=== PATIENT | female | born 1980 | race Caucasian/White ===

== ENCOUNTER 2018-12-17 07:11 | Emergency (ER) | payer MEDICAID ==
[~2018-12-17] VITALS: Ht 162.6 cm; Wt 67.9 kg
[2018-12-17 07:14] VITALS: RESP 17; Ht 162.6 cm; Wt 67.9 kg
[2018-12-17] MEDS ORDERED: NORE1TAB12 PO (09:37)
[2018-12-17] MEDS ORDERED: FER325 PO (09:37)
[2018-12-17] MEDS ORDERED: DOCU-144 PO (09:37)
[2018-12-17 10:01] VITALS: BP 118/56; PULSE 71
--- NOTE | 2018-12-17 10:05 | ERD ---
ER Documentation Chief Complaint Chief Complaint IRREGULAR PERIODIC HEAVY/LIGHT VB X 2 MONTHS HPI 38-year-old female presenting with vaginal bleeding for the last 2 months. Patient received a Depo-Provera shot 2 months ago and has had continued bleeding ever since. Patient denies any pelvic pain. She denies any dizziness or chest pain. Denies other medical problems. NKDA. Surgical history denies. Social history denies ROS All systems reviewed and are negative except as per history of present illness. Medications Home Meds Active Scripts Docusate Sodium* (Colace*) 100 Mg Capsule, 100 MG PO TID, #30 CAP Prov:LUCHO JOHNSON PA-C 12/17/18 Ferrous Sulfate* (Ferrous Sulfate*) 325 Mg Tabec, 325 MG PO BID, #30 TAB Prov:LUCHO JOHNSON PA-C 12/17/18 Noreth A-Et Estra/Fe Fumarate (LO LOESTRIN FE 1-10 TABLET) 1 Each Tablet, 1 EACH PO DAILY, #28 TAB Prov:LUCHO JOHNSON PA-C 12/17/18 Allergies Allergies: Coded Allergies: No Known Allergy (Unverified , 08/02/13) PMhx/Soc Medical and Surgical Hx: pt denies Medical Hx, pt denies Surgical Hx Hx Alcohol Use: No Hx Substance Use: No Hx Tobacco Use: No Smoking Status: Never smoker FmHx Family History: No diabetes, No coronary disease, No other Physical Exam Vitals Vital Signs Date Temp Pulse Resp B/P (MAP) Pulse Ox O2 O2 Flow FiO2 Time Delivery Rate 12/17/18 98.8 71 118/56 10:01 (76) 12/17/18 97.6 90 17 146/70 97 07:14 (95) Physical Exam GENERAL: The patient is well-appearing, well-nourished, in no acute distress CHEST: Clear to auscultation bilaterally. There are no rales, wheezes or rhonchi. HEART: Regular rate and rhythm. No murmurs, clicks, rubs or gallops. ABDOMEN:Soft, nontender and nondistended. Good bowel sounds. No rebound or guarding. No gross peritonitis. No gross organomegaly or masses. BACK: No midline or flank tenderness. Result Diagram: 12/17/18 0753 12/17/18 0753 Results 24 hrs Laboratory Tests Test 12/17/18 07:53 White Blood Count 3.6 10^3/ul Red Blood Count 4.19 10^6/ul Hemoglobin 11.1 g/dl Hematocrit 34.9 % Mean Corpuscular Volume 83.3 fl Mean Corpuscular Hemoglobin 26.5 pg Mean Corpuscular Hemoglobin Concent 31.8 g/dl Red Cell Distribution Width 13.1 % Platelet Count 174 10^3/UL Mean Platelet Volume 11.1 fl Immature Granulocytes % 0.000 % Neutrophils % 59.5 % Lymphocytes % 27.2 % Monocytes % 9.4 % Eosinophils % 3.6 % Basophils % 0.3 % Nucleated Red Blood Cells % 0.0 /100WBC Immature Granulocytes # 0.000 10^3/ul Neutrophils # 2.1 10^3/ul Lymphocytes # 1.0 10^3/ul Monocytes # 0.3 10^3/ul Eosinophils # 0.1 10^3/ul Basophils # 0.0 10^3/ul Nucleated Red Blood Cells # 0.0 10^3/ul Urine Color YELLOW Urine Clarity CLOUDY Urine pH 6.0 Urine Specific [place] 1.015 Urine Ketones NEGATIVE mg/dL Urine Nitrite NEGATIVE mg/dL Urine Bilirubin NEGATIVE mg/dL Urine Urobilinogen NEGATIVE mg/dL Urine Leukocyte Esterase TRACE Mason/ul Urine Microscopic RBC > 182 /HPF Urine Microscopic WBC 41 /HPF Urine Squamous Epithelial Cells FEW /HPF Urine Bacteria FEW /HPF Urine Mucus FEW /HPF Urine Hemoglobin 3+ mg/dL Urine Glucose NEGATIVE mg/dL Urine Total Protein NEGATIVE mg/dl Urine Test NEGATIVE Sodium Level 143 mmol/L Potassium Level 3.8 mmol/L Chloride Level 109 mmol/L Carbon Dioxide Level 23 mmol/L Anion Gap 11 Blood Urea Nitrogen 13 mg/dl Creatinine 0.69 mg/dl Est Glomerular Filtrat Rate mL/min > 60 mL/min Glucose Level 96 mg/dl Calcium Level 9.4 mg/dl Total Bilirubin 0.6 mg/dl Direct Bilirubin 0.00 mg/dl Indirect Bilirubin 0.6 mg/dl Aspartate Amino Transf (AST/SGOT) 21 IU/L Alanine Aminotransferase (ALT/SGPT) 18 IU/L Alkaline Phosphatase 67 IU/L Total Protein 7.8 g/dl Albumin 4.4 g/dl Globulin 3.40 g/dl Albumin/Globulin Ratio 1.29 Lipase 60 U/L Procedures/MDM DIAGNOSTIC IMAGING REPORT Patient: TARA STERN : 1980 Age: 38 Sex: F MR #: [id number] DOS: 12/17/18 0739 Ordering MD: DANNY JOHNSON PA-C Location: [facility] Room/Bed: PROCEDURE: Pelvic ultrasound color-flow Doppler of the adnexa. CLINICAL INDICATION: Pain TECHNIQUE: Multiple sagittal, oblique and transverse real time images were obtained of the lower abdomen and pelvis using a transabdominal as well a transvaginal approach. Color-flow Doppler of the adnexa. COMPARISON: None. FINDINGS: The uterus is enlarged measuring 10.83 x 7.27 x 6.81 cm. Myometrial echoes are diffusely heterogeneous with multiple leiomyomas. The 2 largest leiomyomas are in the fundus measuring 5.2 and 4.2 cm respectively. The endometrium is homogeneous without focal lesion and is mildly thickened maximal AP diameter 1.29 cm. The ovaries are normal in size with the right measuring 2.83 x 1.87 x 2.78 cm and the left measuring 3.83 x 1.75 x 3.95 cm. There follicular cysts in both ovaries. In the left ovary is a 1.76 cm cyst. No other ovarian masses. Flow to both ovaries without ultrasonic evidence of ovarian torsion. Small free fluid in the right adnexa. No other free fluid. No evidence of adnexal masses. IMPRESSION: 1. Enlarged heterogeneous uterus with multiple leiomyomas as described above. 2. Homogeneous thickened endometrium without focal lesion. 3. Normal size ovaries with the left ovary containing a 1.76 cm cyst. Additional bilateral ovarian follicular cysts. No ultrasonic evidence of ovarian torsion. 4. Small free fluid in the right adnexa. No other free fluid. 5. No adnexal masses. MDM: 38-year-old female presenting with vaginal bleeding. Patient has fibroid seen on ultrasound. Patient will be discharged with hormonal treatment and recommended follow-up with BENEFITS CONSULTANT. Patient is also given iron however the patient does not require transfusion at this time. She is not symptomatic hemog lobin is stable. Patient is discharged with strict ER precautions. All questions answered at discharge Departure Diagnosis: Primary Impression: Fibroids Additional Impression: Vaginal bleeding Condition: Stable Patient Instructions: Uterine Fibroids Referrals: BENEFITS CONSULTANT [place] [address] [place] [address] OFFICE FAX , REJI [address] [place] [address] DR. POPE, [place] [address] [place] [address] DR FERNANDEZ, [facility] [address], [place] [address] DR ACEVEDO, [facility] [address] [facility] [place] [address] [facility] [address] [place] [address] [facility] [address] - DR MORELAND JAROD [address] [facility]. [address], [place] [address] DR CASILLAS, [place] [address] [facility]. [address], [place] [address] DR MINAYA [facility] [address] [place], [place] [id number] Additional Instructions: FOLLOW UP WITH YOUR PRIMARY CARE PHYSICIAN TOMORROW.Return to this facility if you are not improving as expected. LUCHO JOHNSON PA-C Dec 17, 2018 10:05
== END 2018-12-17 10:03 | disposition home or self-care (01) ==
LOC: FTE 07:11
DX: D25.9 Leiomyoma of uterus, unspecified (principal); R10.2 Pelvic and perineal pain
CPT/HCPCS: 36415; 76830; 76856; 80053; 81001; 83690; 84703; 85025; Z7502

== ENCOUNTER 2018-12-18 06:32 | Emergency (ER) | payer MEDICAID ==
[~2018-12-18] VITALS: Ht 154.9 cm; Wt 67.0 kg
[~2018-12-18 06:32] MED LIST: DOCU-144 PO; FER325 PO; NORE1TAB12 PO
[2018-12-18 06:37] VITALS: BP 128/81; PULSE 81; RESP 18; Ht 154.9 cm; Wt 67.0 kg
--- NOTE | 2018-12-18 07:57 | ERD ---
ER Documentation Chief Complaint Chief Complaint vaginal bleeding; lower abdominal pain HPI 38-year-old female presents for intermittent heavy vaginal bleeding times 2 months. She was here in the ER yesterday and was found to have uterine fibroid by ultrasound. She states that she is been using a pad about every 30 minutes. She is also complains of clots. She states there is associated mild pelvic pain. Otherwise she denies shortness of breath or chest pain. Denies dizziness. She was given control pills for the vaginal bleeding yesterday. ROS All systems reviewed and are negative except as per history of present illness. Medications Home Meds Active Scripts Docusate Sodium* (Colace*) 100 Mg Capsule, 100 MG PO TID, #30 CAP Prov:LUCHO JOHNSON PA-C 12/17/18 Ferrous Sulfate* (Ferrous Sulfate*) 325 Mg Tabec, 325 MG PO BID, #30 TAB Prov:LUCHO JOHNSON PA-C 12/17/18 Noreth A-Et Estra/Fe Fumarate (LO LOESTRIN FE 1-10 TABLET) 1 Each Tablet, 1 EACH PO DAILY, #28 TAB Prov:LUCHO JOHNSON PA-C 12/17/18 Allergies Allergies: Coded Allergies: No Known Allergy (Unverified , 08/02/13) PMhx/Soc History of Surgery: Yes (c/s) Anesthesia Reaction: No Hx Miscellaneous Medical Probl: Yes (fIBROIDS IN UTERUS) Hx Alcohol Use: No Hx Substance Use: No Hx Tobacco Use: No Smoking Status: Never smoker Physical Exam Vitals Vital Signs Date Temp Pulse Resp B/P (MAP) Pulse Ox O2 O2 Flow FiO2 Time Delivery Rate 12/18/18 97.7 81 18 128/81 98 06:37 (97) Physical Exam Const: No acute distress Resp: Clear to auscultation bilaterally Cardio: Regular rate and rhythm, no murmurs Abd: Soft, non tender, non distended. Normal bowel sounds Skin: No petechiae or rashes Back: No midline or flank tenderness Ext: No cyanosis, or edema Neur: Awake and alert Psych: Normal Mood and Affect Result Diagram: 12/18/18 0717 Results 24 hrs Laboratory Tests Test 12/18/18 07:17 White Blood Count 5.0 10^3/ul Red Blood Count 3.81 10^6/ul Hemoglobin 10.2 g/dl Hematocrit 31.6 % Mean Corpuscular Volume 82.9 fl Mean Corpuscular Hemoglobin 26.8 pg Mean Corpuscular Hemoglobin Concent 32.3 g/dl Red Cell Distribution Width 13.2 % Platelet Count 175 10^3/UL Mean Platelet Volume 11.1 fl Immature Granulocytes % 0.200 % Neutrophils % 72.5 % Lymphocytes % 18.7 % Monocytes % 6.2 % Eosinophils % 2.0 % Basophils % 0.4 % Nucleated Red Blood Cells % 0.0 /100WBC Immature Granulocytes # 0.010 10^3/ul Neutrophils # 3.7 10^3/ul Lymphocytes # 0.9 10^3/ul Monocytes # 0.3 10^3/ul Eosinophils # 0.1 10^3/ul Basophils # 0.0 10^3/ul Nucleated Red Blood Cells # 0.0 10^3/ul Procedures/MDM Medical Decision Makin-year-old female presents for vaginal bleeding. She was seen in the ER here for uterine fibroids. She was given prescription for control. Patient appeared well on physical exam. Hemoglobin yesterday in the ER was about 11 Repeat hemoglobin today was 10 Vital signs reviewed, patient hemodynamically stable. Patient advised that she will need to follow-up with her BAND PRESSER regarding the uterine fibroids. Patient felt stable for outpatient management. Patient advised to follow up with PCP in 1-2 days. Patient advised to return to ED for new or worsening symptoms. Patient stable on discharge from the ED. Disclaimer: Inadvertent spelling and grammatical errors are likely due to EHR/dictation software use and do not reflect on the overall quality of patient care. Also, please note that the electronic time recorded on this note does not necessarily reflect the actual time of the patient encounter. Departure Diagnosis: Primary Impression: Excessive vaginal bleeding Additional Impression: Uterine fibroid Condition: Fair Patient Instructions: Menorrhagia Referrals: COMMUNITY CLINICS YOU HAVE RECEIVED A MEDICAL SCREENING EXAM AND THE RESULTS INDICATE THAT YOU DO NOT HAVE A CONDITION THAT REQUIRES URGENT TREATMENT IN THE EMERGENCY DEPARTMENT. FURTHER EVALUATION AND TREATMENT OF YOUR CONDITION CAN WAIT UNTIL YOU ARE SEEN IN YOUR DOCTORS OFFICE WITHIN THE NEXT 1-2 DAYS. IT IS YOUR RESPONSIBILITY TO MAKE AN APPOINTMENT FOR FOLOW-UP CARE. IF YOU HAVE A PRIMARY DOCTOR --you should call your primary doctor and schedule an appointment IF YOU DO NOT HAVE A PRIMARY DOCTOR YOU CAN CALL OUR PHYSICIAN REFERRAL HOTLINE AT IF YOU CAN NOT AFFORD TO SEE A PHYSICIAN YOU CAN CHOSE FROM THE FOLLOWING [facility] [address] [facility]. [facility] [address] [facility] [address] [facility] [address] [facility] [address] [facility] [address] BAND PRESS[place] [address] [facility] [address] [place] [address] OFFICE FAX , REJI [address] [place] [address] [address] [address] [place] [address] DR FERNANDEZ [facility] [address] [facility], [address], [facility] [address] [address] [address] [place] [address] [facility] [address] [place] [address] [address] [facility] [address] - JAROD MORALES [address], [place] [address] DR CASILLAS [place] [address] [facility]. [address], [place] [address] DR MINAYA [facility] [address] [place] [address] Additional Instructions: Call your primary care doctor TOMORROW for an appointment during the next 1-2 days.See the doctor sooner or return here if your condition worsens before your appointment time. Llame al doctor MAANA y toya ashley SHRAON PARA DENTRO DE 1-2 PARKER.Dgale a la secretaria que nosotros le instruimos hacer esta sharon.Avise o llame si adame condicin se empeora antes de la sharon. Regresa aqui si peor o no mejor. NICOLE SLATER DO Dec 18, 2018 07:57
== END 2018-12-18 08:01 | disposition home or self-care (01) ==
LOC: FTE 06:32
DX: N93.9 Abnormal uterine and vaginal bleeding, unspecified (principal); D25.9 Leiomyoma of uterus, unspecified
CPT/HCPCS: 85025; Z7502; 99283

== ENCOUNTER 2018-12-19 04:47 | Inpatient (IN) | payer MEDICAID ==
[~2018-12-19] VITALS: Ht 162.6 cm; Wt 68.9 kg
[2018-12-19] VITALS (21 sets, daily range): BP systolic 111–149; BP diastolic 60–81; PULSE 68–93; RESP 10–20; Ht 162.6 cm; Wt 68.9 kg
[2018-12-19] MEDS ORDERED: SOD CHLORIDE 0.9% 1,000 ML IV ONE (05:00)
[2018-12-19] MEDS ORDERED: LIDOCAINE 2% (SDV) 5 ML INJ ONE (07:00)
[2018-12-19] MEDS ORDERED: DESFLURANE 15 MIN ONE (07:00)
[2018-12-19] MEDS ORDERED: SOD CHLORIDE 0.9% 250 ML IV* ONE (08:21)
--- NOTE | 2018-12-19 08:28 | HP ---
Date/Time of Note Date/Time of Note DATE: 12/19/18 TIME: 08:28 Assessment/Plan VTE Prophylaxis SCD applied (from Ns): Yes Pharmacological prophylaxis: NA/contraindicated Pharm contraindication: bleeding Assessment/Plan Hospital Course SUBJECTIVE: Having vaginal bleed. OBJECTIVE: Vital signs-see below PHYSICAL EXAM: Constitutional: Well-developed, well-nourished, not in acute distress. HEENT: Head atraumatic and normocephalic. Eyes: Extraocular muscles intact. Anicteric sclerae. Pupils equal bilaterally, reactive to light. NECK: Supple without lymph node. CHEST: Clear and good breath sounds equally. No wheezing. No rhonchi. HEART: S1, S2. Regular rate and rhythm. ABDOMEN: Soft, nontender. Bowel sounds were present. EXTREMITIES: Full range of motion in all the extremities. No cyanosis, clubbing or edema. NEUROLOGIC: Alert and oriented x3. No focal deficit. No sensory deficit. PSYCHOSOCIAL: In a good mood. No signs of depression. INTEGUMENTARY: Moist mucous membranes. Good skin turgor, intact. ASSESSMENT AND PLAN: 38-year-old female with known history of uterine fibroid, DUB, on hormonal therapy, presented back to the emergency room with heavy vaginal bleed as she could not follow-up with outpatient [facility] team. 1.Dysfunctional uterine bleed secondary to uterine fibroids. -Unfortunately, due to insurance reasons, she could not see [facility] as outpatient. Patient now with drop in hemoglobin, warranting emergent [facility] intervention. As such, I discussed this findings with , who is our [facility] special weapons unit officer, advised to keep patient n.p.o. for surgical procedure to control bleeding. -N.p.o. -Follow-up [facility]ERY recommendations 2. Acute blood loss anemia secondary to DUB,Symptomatic -We will transfuse patient with 2 units of packed red blood cells. Go ahead and obtain iron panel to a.m. labs and will treat patient with IV iron in light of acute blood loss. DVT prophylaxis: SCDs PUD prophylaxis: Not indicated Rest of the management depend on hospital course. Approximately 60 minutes were spent on this history and physical. Patient was seen in collaboration with Result Diagram: 12/19/18 0507 12/19/18 0507 Results 24hrs Laboratory Tests Test 12/19/18 05:07 White Blood Count 4.1 L Red Blood Count 2.56 #L Hemoglobin 7.0 #L Hematocrit 21.5 #L Mean Corpuscular Volume 84.0 Mean Corpuscular Hemoglobin 27.3 L Mean Corpuscular Hemoglobin Concent 32.6 Red Cell Distribution Width 13.4 Platelet Count 147 Mean Platelet Volume 11.4 H Immature Granulocytes % 0.200 Neutrophils % 63.1 Lymphocytes % 26.6 Monocytes % 8.9 Eosinophils % 0.7 Basophils % 0.5 Nucleated Red Blood Cells % 0.0 Immature Granulocytes # 0.010 Neutrophils # 2.6 Lymphocytes # 1.1 Monocytes # 0.4 Eosinophils # 0.0 Basophils # 0.0 Nucleated Red Blood Cells # 0.0 Sodium Level 137 Potassium Level 3.7 Chloride Level 107 Carbon Dioxide Level 23 Anion Gap 7 Blood Urea Nitrogen 18 Creatinine 0.61 Est Glomerular Filtrat Rate mL/min > 60 Glucose Level 116 Calcium Level 8.3 L Beta HCG, Quantitative < 2.4 HPI/ROS Admit Date/Time Admit Date/Time Dec 19, 2018 at 05:55 Hx of Present Illness This is a 38-year-old female with uterine fibroid, dysfunctional uterine bleed who is on hormonal therapy, who was also seen in our emergency room 2 days ago with outpatient [facility] follow-up, returned back with heavy vaginal bleeding and feeling dizzy. Patient was noted with hemoglobin 7.0, hematocrit 21.5. Patient denied chest pain, palpitation, shortness of breath, nausea, vomiting, loss of consciousness, dizziness, numbness, tingling, fever, chills or others. Patient had generalized abdominal pain. ROS A 12 point review of system was assessed and is negative other than what is mentioned in HPI. PMH/Family/Social Past Medical History See HPI Coded Allergies: No Known Allergy (Unverified , 12/19/18) Past Surgical History None Social History Denied history of alcohol, smoking, illicit drug use. Smoking Status: Never smoker Exam/Review of Systems Vital Signs Vitals Vital Signs Date Temp Pulse Resp B/P (MAP) Pulse Ox O2 O2 Flow FiO2 Time Delivery Rate 12/19/18 98.6 73 20 113/60 100 08:07 (77) 12/19/18 Room Air 07:15 PAPITO CANO NP Dec 19, 2018 08:28
[2018-12-19] MEDS ORDERED: NACL 0.9% 3 ML SYG IV SCH (08:30)
[2018-12-19] MEDS ORDERED: ACETAMINOPHEN 325 MG TAB PO PRN (08:30)
[2018-12-19] MEDS ORDERED: ONDANSETRON 4 MG INJ IV PRN ×2 (08:30→11:30)
[2018-12-19] MEDS: DOCUSATE SODIUM 100 MG CAP PO SCH ×3 (09:00→21:00)
[2018-12-19] MEDS ORDERED: CEFAZOLIN 1 GM INJ ONE (10:13)
[2018-12-19] MEDS ORDERED: PROPOFOL 40 ML ONE (10:13)
[2018-12-19] MEDS ORDERED: FAMOTIDINE 20 MG INJ ONE (10:14)
[2018-12-19] MEDS ORDERED: ONDANSETRON 4 MG INJ ONE (10:14)
[2018-12-19] MEDS ORDERED: FENTAnyl 50 MCG/ML VIAL ONE (10:14)
[2018-12-19] MEDS ORDERED: MEPERIDINE 25 MG INJ IV PRN (11:30)
[2018-12-19] MEDS ORDERED: OXYCODONE/ACETAMINOPHEN (5/325) TAB PO PRN ×2 (11:30)
[2018-12-19] MEDS ORDERED: LABETALOL HCL 20MG INJ IV PRN (11:30)
[2018-12-19] MEDS ORDERED: FENTAnyl 50 MCG/ML VIAL IV PRN ×2 (11:30)
[2018-12-19] MEDS ORDERED: morphine (1 MG/ML) 10ML SYRINGE IV PRN ×2 (11:30)
[2018-12-19] MEDS ORDERED: HYDROmorphONE 1 MG/5 ML IV SYRINGE IV PRN ×3 (11:30)
[2018-12-19] MEDS ORDERED: DIPHENHYDRAMINE 50 MG INJ IV PRN (11:30)
[2018-12-19] MEDS ORDERED: ALBUTEROL 0.083% (NEB) 2.5 MG/3 ML AMP HHN PRN (11:30)
--- NOTE | 2018-12-19 11:30 | PREAC ---
Date/Time of Note Date/Time of Note DATE: 12/19/18 TIME: 11:28 Anesthesia Eval and Record Evaluation Time Pre-Procedure Interview DATE: 12/19/18 TIME: 11:28 Age 38 Sex female NPO: 8 hrs Preoperative diagnosis fibroids/menorrhagia Planned procedure D&C Past Medical History Past Medical History: Includes Heme: Anemia Surgery & Anesthesia Issues No known issue Meds Anticoagulation: No Beta Trent within 24 hr: No Reason Beta Trent not given: Pt. not on B-Trent Active Scripts Docusate Sodium* (Colace*) 100 Mg Capsule, 100 MG PO TID, #30 CAP Prov:LUCHO JOHNSON PA-C 12/17/18 Ferrous Sulfate* (Ferrous Sulfate*) 325 Mg Tabec, 325 MG PO BID, #30 TAB Prov:LUCHO JOHNSON PA-C 12/17/18 Noreth A-Et Estra/Fe Fumarate (LO LOESTRIN FE 1-10 TABLET) 1 Each Tablet, 1 EACH PO DAILY, #28 TAB Prov:LUCHO JOHNSON PA-C 12/17/18 Current Medications Docusate Sodium (Colace) 100 mg TID PO ; Start 12/19/18 at 09:00 Ferric Sodium Gluconate Complex 125 mg/Sodium Chloride 100 ml @ 100 mls/hr DAILY@1300 IVPB ; Start 12/19/18 at 13:00; Stop 12/21/18 at 13:59 IV Flush (NS 3 ml) 3 ml PER PROTOCOL IV ; Start 12/19/18 at 08:30 Ondansetron HCl (Zofran Inj) 4 mg Q6H PRN IV NAUSEA/VOMITING; Start 12/19/18 at 08:30 Acetaminophen (Tylenol Tab) 650 mg Q6H PRN PO .PAIN 1-3 OR TEMP; Start 12/19/18 at 08:30 Meds reviewed: Yes Allergies Coded Allergies: No Known Allergy (Unverified , 12/19/18) Allergies Reviewed: Yes Labs/Studies Labs Reviewed: Reviewed by anesthesiologist Result Diagram: 12/19/18 0507 12/19/18 0507 Laboratory Tests 12/19/18 05:07 Blood Bank Test 12/19/18 05:27 Antibody Screen NEGATIVE Blood Product Summary Counts Blood Type O POSITIVE Crossmatch Red Blood Cells test: Negative Pre-procedure Exam Last vitals Vital Signs Date Temp Pulse Resp B/P (MAP) Pulse Ox O2 O2 Flow FiO2 Time Delivery Rate 12/19/18 98.6 73 20 113/60 100 08:07 (77) 12/19/18 Room Air 07:15 Airway: Adequate mouth opening, Adequate thyromental dist Mallampati: Mallampati II Teeth: Normal Lung: Normal Heart: Normal ASA Physical Status ASA physical status: 2 Emergency: None Planned Anesthetic General/MAC: LMA Pre-operative Attestations Prior to commencing anesthesia and surgery, the patient was re-evaluated, there was verification of: *The patient's identity *The results of appropriate recent lab work and preoperative vital signs *The above evaluation not changing prior to induction *Anesthetic plan, risk benefits, alternative and complications discussed with patient/family; questions answered; patient/family understands, accepts and wishes to proceed. DEEPAK PINO Dec 19, 2018 11:30
--- NOTE | 2018-12-19 12:41 | QN ---
Documentation Comment D&C&Hysteroscopy and endometrial ablation is done successfully ,No complic ations.Body Shop Supervisor team is signing off on the patient ,She needs to Follow up with her doctor in 2 weeks to review the final pathology YAZ AUGUSTE M.D. Dec 19, 2018 12:41
--- NOTE | 2018-12-19 12:42 | PAC ---
Date/Time of Note Date/Time of Note DATE: 12/19/18 TIME: 12:40 Post-Anesthesia Notes Post-Anesthesia Note Last documented vital signs Vital Signs Date Temp Pulse Resp B/P Pulse Ox O2 O2 Flow FiO2 Time (MAP) Delivery Rate 12/19/18 98.2 98.2 79 82 16 16 111/65 98 100 Room 11:00 123 (80) 136 Air face mask 4L Activity: WNL Respiratory function: WNL Cardiovascular function: WNL Mental status: Baseline Pain reasonably controlled: Yes Hydration appropriate: Yes Nausea/Vomiting absent: Yes DEEPAK PINO Dec 19, 2018 12:41
[2018-12-19] MEDS: SOD FERRIC GLUC COMPLX 125 MG in SOD CHLORIDE 0.9% 100 ML IVPB SCH (13:51)
[2018-12-19] MEDS ORDERED: HYDROmorphONE 2 MG/ML SYG IV STA (14:42)
[2018-12-19] MEDS ORDERED: HYDROCODONE/APAP (5/325) TAB PO PRN (15:00)
[2018-12-19] MEDS ORDERED: HYDROmorphONE 1 MG/ML SYG IV PRN (15:00)
--- NOTE | 2018-12-19 15:10 | OPR ---
DATE OF OPERATION: 12/19/2018 HISTORY OF PRESENT ILLNESS: A 38-year-old 2, para 2 with a history of menorrhagia and fibroi d uterus admitted through the Emergency Room with severe anemia. PAST MEDICAL HISTORY: Anemia. PAST SURGICAL HISTORY: . ALLERGIES: NKDA. PHYSICAL EXAMINATION: VITAL SIGNS: Stable. GENERAL: Normal. ABDOMEN: Not tender, not distended. GENITAL: There was 5-10 cystic clots in the vaginal vault. ASSESSMENT AND PLAN: A 38-year-old 2, para 2 with history of fibroid uterus and heavy menorr hagia, acutely bleeding. Patient was consented for D and C and hysteroscopy and endometrial ablation . Risks and benefits were extensively discussed with the patient. Alternatives extensively discusse d. Risks, benefits, and alternatives discussed. The patient signed the consent and was taken to the operating room. Dictated By: YAZ AUGUSTE MD RG/NTS Conf#: [id number] DID#: [id number] CC: POPEYE LANE MD;*EndCC*
--- NOTE | 2018-12-19 15:19 | OPR ---
DATE OF OPERATION: 12/19/2018 PREOPERATIVE DIAGNOSES: 1. Heavy menorrhagia. 2. Anemia. 3. History of fibroid uterus. POSTOPERATIVE DIAGNOSES: 1. Heavy menorrhagia. 2. Anemia. 3. History of fibroid uterus. PROCEDURE: Dilation and curettage and suction, endometrial ablation (hydrothermic). ATTENDING SURGEON: Kofi Reyna MD TYPE OF ANESTHESIA: General. COMPLICATIONS: None. ESTIMATED BLOOD LOSS: Minimal. TECHNIQUE: The patient was taken to the operating room where general anesthesia was found to be adeq uate. The patient was placed in dorsal lithotomy position after prep and drape. A weighted speculum was placed inside the vaginal vault. Anterior lip of the cervix was grasped by single-tooth tenacul um. Endocervical curettage was done. Endometrial curettage was done and it was sent for frozen sect ion besides permanent specimen that was provided to pathology. Then, [employer] hydrothermic endometrial ablation device was inserted and saline was confirmed. There was no leaking. The was 10 minutes of ablation that was done successfully, 1 minute and half cooling that was also done success fully. Instruments were removed. The patient tolerated the procedure well and was transferred to re covery room in stable condition. There was no complication regarding this surgery. Dictated By: KOFI REYNA MD RG/NTS Conf#: [id number] DID#: [id number] CC: POPEYE LANE MD;*EndCC*
[2018-12-20 02:42] VITALS: BP 105/60; PULSE 61; RESP 18
[2018-12-20 08:05] VITALS: BP 105/58; PULSE 75; RESP 20
[2018-12-20] MEDS: DOCUSATE SODIUM 100 MG CAP PO SCH ×3 (08:48→20:05)
[2018-12-20] MEDS: SOD FERRIC GLUC COMPLX 125 MG in SOD CHLORIDE 0.9% 100 ML IVPB SCH (12:32)
--- NOTE | 2018-12-20 12:39 | PN ---
Date/Time of Note Date/Time of Note DATE: 12/20/18 TIME: 12:36 Assessment/Plan VTE Prophylaxis Risk score (from Ns)>0 risk: 1 SCD applied (from Ns): Yes Pharmacological prophylaxis: NA/contraindicated Pharm contraindication: bleeding Lines/Catheters IV Catheter Type (from [facility]): Peripheral IV Urinary Cath still in place: No Assessment/Plan Hospital Course SUBJECTIVE: No further vaginal bleed. No further pain. OBJECTIVE: Vital signs-see below PHYSICAL EXAM: Constitutional: Well-developed, well-nourished, not in acute distress. HEENT: Head atraumatic and normocephalic. Eyes: Extraocular muscles intact. Anicteric sclerae. Pupils equal bilaterally, reactive to light. NECK: Supple without lymph node. CHEST: Clear and good breath sounds equally. No wheezing. No rhonchi. HEART: S1, S2. Regular rate and rhythm. ABDOMEN: Soft, nontender. Bowel sounds were present. EXTREMITIES: Full range of motion in all the extremities. No cyanosis, clubbing or edema. NEUROLOGIC: Alert and oriented x3. No focal deficit. No sensory deficit. PSYCHOSOCIAL: In a good mood. No signs of depression. INTEGUMENTARY: Moist mucous membranes. Good skin turgor, intact. ASSESSMENT AND PLAN: 38-year-old female with known history of uterine fibroid, DUB, on hormonal therapy, presented back to the emergency room with heavy vaginal bleed as she could not follow-up with outpatient MANAGEMENT DEPARTMENT CHAIR team. 1.Menorrhagia/metrorrhagia secondary to -Status post dilatation and curettage/suction, endometrial ablation -LOG SORTER signed off from case. Advance diet as tolerated. 2. Acute symptomatic blood loss anemia secondary to DUB -That is post 2 units. Receiving IV iron. H&H stabilizing. At this time, recommend continuation of IV iron for another 2 doses. DVT prophylaxis: SCDs PUD prophylaxis: Not indicated Specimen: Continue current management. Advance diet. Continue IV iron and if repeat hemoglobin stable in a.m. with no further vaginal bleeding. Discharged with outpatient LOG SORTER follow-up. Patient was seen in collaboration with Result Diagram: 12/20/18 0437 12/20/18 0437 Results 24hrs Laboratory Tests Test 12/19/18 22:14 12/20/18 04:37 12/20/18 11:54 Hemoglobin 9.3 #L 8.8 L Hematocrit 27.9 #L 26.5 L White Blood Count 6.1 # Red Blood Count 3.14 #L Mean Corpuscular Volume 84.4 Mean Corpuscular Hemoglobin 28.0 L Mean Corpuscular 33.2 Hemoglobin Concent Red Cell Distribution Width 14.2 Platelet Count 118 L Mean Platelet Volume 12.1 H Immature Granulocytes % 0.200 Neutrophils % 74.5 Lymphocytes % 17.8 Monocytes % 7.3 Eosinophils % 0.0 Basophils % 0.2 Nucleated Red Blood Cells % 0.0 Immature Granulocytes # 0.010 Neutrophils # 4.6 Lymphocytes # 1.1 Monocytes # 0.5 Eosinophils # 0.0 Basophils # 0.0 Nucleated Red Blood Cells # 0.0 Sodium Level 138 Potassium Level 3.9 Chloride Level 109 Carbon Dioxide Level 21 Anion Gap 8 Blood Urea Nitrogen 10 Creatinine 0.60 Est Glomerular Filtrat > 60 Rate mL/min Glucose Level 95 Calcium Level 8.2 L Magnesium Level 1.8 Lab Scanned Report BLOOD TRANSFUSION Exam/Review of Systems Exam Vitals Vital Signs Date Temp Pulse Resp B/P (MAP) Pulse Ox O2 O2 Flow FiO2 Time Delivery Rate 12/20/18 98.5 75 20 105/58 100 08:05 (74) 12/19/18 Room Air 16:30 12/19/18 8.0 12:54 Intake and Output 12/19/18 12/19/18 12/20/18 1515:00 23:00 07:00 IntakeIntake Total 2030 ml 720 ml BalanceBalance 2030 ml 720 ml Results Results 24hrs Laboratory Tests Test 12/19/18 22:14 12/20/18 04:37 12/20/18 11:54 Hemoglobin 9.3 #L 8.8 L Hematocrit 27.9 #L 26.5 L White Blood Count 6.1 # Red Blood Count 3.14 #L Mean Corpuscular Volume 84.4 Mean Corpuscular Hemoglobin 28.0 L Mean Corpuscular 33.2 Hemoglobin Concent Red Cell Distribution Width 14.2 Platelet Count 118 L Mean Platelet Volume 12.1 H Immature Granulocytes % 0.200 Neutrophils % 74.5 Lymphocytes % 17.8 Monocytes % 7.3 Eosinophils % 0.0 Basophils % 0.2 Nucleated Red Blood Cells % 0.0 Immature Granulocytes # 0.010 Neutrophils # 4.6 Lymphocytes # 1.1 Monocytes # 0.5 Eosinophils # 0.0 Basophils # 0.0 Nucleated Red Blood Cells # 0.0 Sodium Level 138 Potassium Level 3.9 Chloride Level 109 Carbon Dioxide Level 21 Anion Gap 8 Blood Urea Nitrogen 10 Creatinine 0.60 Est Glomerular Filtrat > 60 Rate mL/min Glucose Level 95 Calcium Level 8.2 L Magnesium Level 1.8 Lab Scanned Report BLOOD TRANSFUSION Medications Medication Current Medications Docusate Sodium (Colace) 100 mg TID PO Last administered on 12/20/18at 08:48; Admin Dose 100 MG; Start 12/19/18 at 09:00 Ferric Sodium Gluconate Complex 125 mg/Sodium Chloride 100 ml @ 100 mls/hr DAILY@1300 IVPB Last administered on 12/19/18at 13:51; Admin Dose 100 MLS/HR; Start 12/19/18 at 13:00; Stop 12/21/18 at 13:59 IV Flush (NS 3 ml) 3 ml PER PROTOCOL IV ; Start 12/19/18 at 08:30 Ondansetron HCl (Zofran Inj) 4 mg Q6H PRN IV NAUSEA/VOMITING Last administered on 12/19/18at 14:58; Admin Dose 4 MG; Start 12/19/18 at 08:30 Acetaminophen (Tylenol Tab) 650 mg Q6H PRN PO .PAIN 1-3 OR TEMP; Start 12/19/18 at 08:30 Hydromorphone HCl (Dilaudid) 1 mg Q4H PRN IV SEVERE PAIN LEVEL 7-10; Start 12/19/18 at 15:00 Acetaminophen/ Hydrocodone Bitart ([place] (5/325)) 1 tab Q4H PRN PO MODERATE PAIN LEVEL 4-6; Start 12/19/18 at 15:00 PAPITO CANO NP Dec 20, 2018 12:39
[2018-12-20 14:20] VITALS: BP 93/50; PULSE 79; RESP 20
[2018-12-20 14:25] VITALS: BP 90/57; PULSE 85; RESP 20
[2018-12-20 20:00] VITALS: BP 106/66; PULSE 77; RESP 18
[2018-12-21 02:41] VITALS: BP 109/55; PULSE 67; RESP 18
[2018-12-21 08:03] VITALS: BP 113/61; PULSE 67; RESP 20
[2018-12-21] MEDS: DOCUSATE SODIUM 100 MG CAP PO SCH ×2 (08:31→12:44)
--- NOTE | 2018-12-21 13:05 | PDOCDIS ---
Discharge Instructions CONDITION [id number] Patient Condition: [id number] Stable HOME CARE INSTRUCTIONS: [id number] Diet Instructions: [id number] Regular FOLLOW UP/APPOINTMENTS Follow-up Plan Follow-up with primary care physician in 1 week. PAPITO CANO NP Dec 21, 2018 13:05
[2018-12-21] MEDS ORDERED: FER325 PO (13:06)
[2018-12-21] MEDS: SOD FERRIC GLUC COMPLX 125 MG in SOD CHLORIDE 0.9% 100 ML IVPB SCH (13:06)
--- NOTE | 2018-12-21 13:09 | DS ---
Date/Time of Note Date/Time of Note DATE: 12/21/18 TIME: 13:07 Discharge Summary Admission/Discharge Info Admit Date/Time Dec 19, 2018 at 05:55 Discharge Date/Time Discharge Diagnosis 1.Menorrhagia/metrorrhagia secondary to -Status post dilatation and curettage/suction, endometrial ablation 2. Acute symptomatic blood loss anemia secondary to DUB.Stable Patient Condition: Stable Consults ,CATALOGUE AND SPECIAL PRODUCTS MANAGER Procedures 12/19/18 PROCEDURE: Dilation and curettage and suction, endometrial ablation (hydrothermic). Hx of Present Illness This is a 38-year-old female with uterine fibroid, dysfunctional uterine bleed who is on hormonal therapy, who was also seen in our emergency room 2 days ago with outpatient CATALOGUE AND [employer] PRODUCTS MANAGER follow-up, returned back with heavy vaginal bleeding and feeling dizzy. Patient was noted with hemoglobin 7.0, hematocrit 21.5. Patient denied chest pain, palpitation, shortness of breath, nausea, vomiting, loss of consciousness, dizziness, numbness, tingling, fever, chills or others. Patient had generalized abdominal pain. Hospital Course 38-year-old female with known history of uterine fibroid, DUB, on hormonal therapy, presented back to the emergency room with heavy vaginal bleed as she could not follow-up with outpatient CATALOGUE AND SPECIAL PRODUCTS MANAGER team. Patient underwent dilatation and curetted/sec. with endometrial ablation on 12/19/2018. Pathology negative for malignancy. Vaginal bleed resolved. Patient was transfused to 22 units with 4 doses of IV iron. Hemoglobin remained stable thereafter. At this time, patient is stable for outpatient follow-up. Approximately 60 m spent on this discharge. Patient was seen in collaboration with Dr. Rae. Home Meds Active Scripts Ferrous Sulfate* (Ferrous Sulfate*) 325 Mg Tabec, 325 MG PO BID, #60 TAB Prov:PAPITO CANO V. FIRE PATROL 12/21/18 Docusate Sodium* (Colace*) 100 Mg Capsule, 100 MG PO TID, #30 CAP Prov:LUCHO JOHNSON PA-C 12/17/18 [place] A-Et Estra/Fe Fumarate (LO LOESTRIN FE 1-10 TABLET) 1 Each Tablet, 1 EACH PO DAILY, #28 TAB Prov:LUCHO JOHNSON PA-C 12/17/18 Follow-up Plan Follow-up with primary care physician in 1 week. Primary Care Provider Care Physician No Primary Pending Labs Laboratory Tests Test 12/21/18 05:22 12/21/18 06:25 White Blood Count 5.8 10^3/ul (4.8-10.8) Red Blood Count 3.06 10^6/ul (4.20-5.40) Hemoglobin 8.5 g/dl (12.0-16.0) Hematocrit 26.1 % (37.0-47.0) Mean Corpuscular Volume 85.3 fl (82.0-101.0) Mean Corpuscular Hemoglobin 27.8 pg (29.0-33.0) Mean Corpuscular 32.6 g/dl (32.0-37.0) Hemoglobin Concent Red Cell Distribution Width 15.0 % (11.5-14.5) Platelet Count 121 10^3/UL (140-415) Mean Platelet Volume 11.7 fl (7.4-10.4) Immature Granulocytes % 0.500 % (0.001-0.429) Neutrophils % 65.5 % (39.0-77.0) Lymphocytes % 26.0 % (15.0-51.0) Monocytes % 7.3 % (0.0-11.0) Eosinophils % 0.5 % (0.0-7.0) Basophils % 0.2 % (0.0-2.0) Nucleated Red Blood Cells % 0.0 /100WBC (0.0-0.0) Immature Granulocytes # 0.030 10^3/ul (0.0-0.031) Neutrophils # 3.8 10^3/ul (1.6-7.5) Lymphocytes # 1.5 10^3/ul (0.8-2.9) Monocytes # 0.4 10^3/ul (0.3-0.9) Eosinophils # 0.0 10^3/ul (0.0-0.5) Basophils # 0.0 10^3/ul (0.0-0.1) Nucleated Red Blood Cells # 0.0 10^3/ul (0.0-0.0) Lab Scanned Report BLOOD TRANSFUSION PAPITO CANO NP Dec 21, 2018 13:09
[2018-12-21 15:00] VITALS: BP 125/68; PULSE 77; RESP 20
== END 2018-12-21 16:20 | disposition home or self-care (01) | DRG 742 ==
LOC: E/R 04:47 → 2NE 05:55
PROVIDERS: ADMIT Internal Medicine; ATTEND Internal Medicine
PROC: 0UDB8ZX Extraction of Endometrium, Via Natural or Artificial Opening Endoscopic, Diagnostic (ICD-10-PCS; 2018-12-19)
PROC: 30273N1 Transfusion of Nonautologous Red Blood Cells into Products of Conception, Circulatory, Percutaneous Approach (ICD-10-PCS; 2018-12-19)
PROC: 0U5B8ZZ Destruction of Endometrium, Via Natural or Artificial Opening Endoscopic (ICD-10-PCS; principal; 2018-12-19 11:30)
DX: D25.9 Leiomyoma of uterus, unspecified (principal); D62 Acute posthemorrhagic anemia; N92.0 Excessive and frequent menstruation with regular cycle; N92.1 Excessive and frequent menstruation with irregular cycle
CPT/HCPCS: 36430; 80048; 83540; 83735; 84702; 85014; 85018; 85025; 86850; 86900; 86901; 86920; 88305; 88331; J0690; J1170; J2175; J2405; J2916; J3010; J7030; J7040; P9016